=== PATIENT | female | born 1985 | race American Indian/Alaskan Native ===

== ENCOUNTER 2019-10-17 04:39 | Emergency (ER) | payer OTHER ==
[2019-10-17 04:50] VITALS: BP 114/59
--- NOTE | 2019-10-17 05:40 | XRay Report ---
CHEST 2 VIEWS INDICATION / CLINICAL INFORMATION: SOB. COMPARISON: None available. FINDINGS: SUPPORT DEVICES: None. HEART / MEDIASTINUM: No significant abnormality. LUNGS / PLEURA: No significant pulmonary or pleural abnormality. No pneumothorax. ADDITIONAL FINDINGS: No significant additional findings. IMPRESSION: 1. No acute findings. Signer Name: Dax Bosch MD Signed: 10/17/2019 5:36 AM Workstation Name: [id number]
--- NOTE | 2019-10-17 05:57 | Emergency Department Report ---
- General Chief Complaint: Upper Respiratory Infection Stated Complaint: SOB Source: patient Mode of arrival: Ambulatory Limitations: No Limitations - History of Present Illness Initial Comments: Patient is a 34-year-old -[place] female with no past medical history who presents to the ED with complaint of acute onset persistent nasal and sinus congestion and mild dry cough for the last 1 week, worse in the last 2 days. Patient states that about 8 hours ago, she looked online and felt that all her symptoms were listed as those to be expected if one had Covid-19. Patient states that she felt short of breath and decided come to the ED for evaluation of a possible Covid-19 infection. Patient denies chest pain, dizziness, syncope, sore throat, diffuse body aches and pains, abdominal pain, nausea, vomiting, diarrhea, dysuria, urinary frequency and urgency, headache or change in vision or syncope, chills or fever MD Complaint: cough, rhinorrhea, nasal congestion -: Sudden, week(s) (1) Severity: moderate Severity scale (0 -10): 4 Quality: dull Consistency: intermittent Improves With: nothing Worsens With: nothing Associated Symptoms: denies other symptoms, fever, rhinorrhea, nasal congestion, cough. denies: chills, myalgias, diaphoresis, headache, sore throat, chest pain, shortness of breath, nausea, vomiting, dysuria, confusion, right sweats, epistaxis, ear pain Treatments Prior to Arrival: none - Related Data Previous Rx's Medication Instructions Recorded Last Taken Type Acetaminophen [Tylenol] 500 mg PO Q6HR PRN #30 tablet 10/17/19 Unknown Rx Brompheniramine/Pseudoephed/Dm 5 ml PO Q6H PRN #120 ml 10/17/19 Unknown Rx [Bromfed Dm Cough Syrup] Cetirizine HCl [Zyrtec 10mg tab] 10 mg PO DAILY #30 tablet 10/17/19 Unknown Rx Fluticasone [Flonase] 1 spray NS QDAY #1 bottle 10/17/19 Unknown Rx Allergies Allergy/AdvReac Type Severity Reaction Status Date / Time No Known Allergies Allergy Unverified 10/17/19 04:52 ED Review of Systems ROS: Stated complaint: SOB Other details as noted in HPI Constitutional: denies: chills, fever Eyes: denies: eye pain, eye discharge, vision change ENT: congestion. denies: ear pain, throat pain Respiratory: cough. denies: shortness of breath, wheezing Cardiovascular: denies: chest pain, palpitations Endocrine: no symptoms reported Gastrointestinal: denies: abdominal pain, nausea, diarrhea Genitourinary: denies: urgency, dysuria, discharge Musculoskeletal: denies: back pain, joint swelling, arthralgia Skin: denies: rash, lesions Neurological: denies: headache, weakness, paresthesias Psychiatric: denies: anxiety, depression Hematological/Lymphatic: denies: easy bleeding, easy bruising ED Past Medical Hx - Past Medical History Previous Medical History?: No - Surgical History Past Surgical History?: No - Social History Smoking Status: Never Smoker Substance Use Type: None - Medications Home Medications: Home Medications Medication Instructions Recorded Confirmed Last Taken Type Acetaminophen [Tylenol] 500 mg PO Q6HR PRN #30 tablet 10/17/19 Unknown Rx Brompheniramine/Pseudoephed/Dm 5 ml PO Q6H PRN #120 ml 10/17/19 Unknown Rx [Bromfed Dm Cough Syrup] Cetirizine HCl [Zyrtec 10mg tab] 10 mg PO DAILY #30 tablet 10/17/19 Unknown Rx Fluticasone [Flonase] 1 spray NS QDAY #1 bottle 10/17/19 Unknown Rx ED Physical Exam - General Limitations: No Limitations General appearance: alert, in no apparent distress - Head Head exam: Present: atraumatic, normocephalic, normal inspection - Eye Eye exam: Present: normal appearance, PERRL, EOMI Pupils: Present: normal accommodation - ENT ENT exam: Present: normal orophraynx, mucous membranes moist, TM's normal bilaterally, normal external ear exam, other (Grossly congested nasal passages) - Neck Neck exam: Present: normal inspection, full ROM. Absent: tenderness - Respiratory Respiratory exam: Present: normal lung sounds bilaterally. Absent: respiratory distress, wheezes, rales, chest wall tenderness, accessory muscle use, decreased breath sounds - Cardiovascular Cardiovascular Exam: Present: normal rhythm, bradycardia, normal heart sounds. Absent: systolic murmur, diastolic murmur, rubs, gallop - GI/Abdominal GI/Abdominal exam: Present: soft, normal bowel sounds. Absent: tenderness, guarding, rebound, hyperactive bowel sounds, hypoactive bowel sounds - Extremities Exam Extremities exam: Present: normal inspection, full ROM, normal capillary refill - Back Exam Back exam: Present: normal inspection, full ROM. Absent: tenderness, CVA tenderness (R), muscle spasm, paraspinal tenderness, vertebral tenderness - Neurological Exam Neurological exam: Present: alert, oriented X3, CN II-XII intact, normal gait, reflexes normal - Psychiatric Psychiatric exam: Present: normal affect, normal mood - Skin Skin exam: Present: warm, dry, intact, normal color. Absent: rash ED Course Vital Signs 10/17/19 04:47 Temperature 98.1 F Pulse Rate 58 L Respiratory 16 Rate Blood Pressure 114/59 O2 Sat by Pulse 99 Oximetry ED Medical Decision Making - Radiology Data Radiology results: report reviewed, image reviewed Chest x-ray shows no acute cardiopulmonary abnormalities or pneumonitis. - Medical Decision Making This is a 34-year-old -[place] female with no past medical history who presents to the ED with complaint of acute onset persistent nasal and sinus congestion and mild dry cough for the last 1 week, worse in the last 2 days. Patient states that about 8 hours ago, she looked online and felt that all her symptoms were listed as those to be expected if one had Covid-19. Patient states that she felt short of breath and decided come to the ED for evaluation of a possible Covid-19 infection. In the ED, patient is alert and oriented x3 and is not in any distress with normal vital signs. Chest x-ray shows no acute cardiopulmonary abnormalities. Physical exam is unremarkable except for mild nasal congestion. Patient was discharged home on medications and advised to follow-up with her primary care physician in 7 to 10 days for reevaluation. Patient is unlikely having any symptoms of coronavirus strain 2019 (Covid-19) but acute upper respiratory infection likely due to allergic rhinitis or bronchitis. Patient was discharged home and advised to follow-up with her primary care physician and advised to return to the ED immediately if symptoms get worse. - Differential Diagnosis Bronchitis; URI; Rhinitis; pneumonia; Covid-19 Critical care attestation.: If time is entered above; I have spent that time in minutes in the direct care of this critically ill patient, excluding procedure time. ED Disposition Clinical Impression: Acute upper respiratory infection, Allergic rhinitis due to other allergen Acute bronchitis Qualifiers: Bronchitis organism: unspecified organism Qualified Code(s): J20.9 - Acute bronchitis, unspecified Disposition: DC-01 TO HOME OR SELFCARE Is pt being admited?: No Does the pt Need Aspirin: No Condition: Stable Instructions: Acute Bronchitis (ED), Upper Respiratory Infection (ED), Allergic Rhinitis (ED) Additional Instructions: Take medication with food, drink plenty of fluids and follow-up with your primary care physician in 7 to 10 days for reevaluation. Return to the ED im mediately if symptoms get worse. Prescriptions: Acetaminophen [Tylenol] 500 mg PO Q6HR PRN #30 tablet PRN Reason: Pain , Severe (7-10) Brompheniramine/Pseudoephed/Dm [Bromfed Dm Cough Syrup] 5 ml PO Q6H PRN #120 ml PRN Reason: Cough Fluticasone [Flonase] 1 spray NS QDAY #1 bottle Cetirizine HCl [Zyrtec 10mg tab] 10 mg PO DAILY #30 tablet Referrals: NATE MCCONNELL MD [Staff Physician] - 7-10 days Time of Disposition: 05:59 Print Language: SAUDI ARABIAN
== END 2019-10-17 06:12 | disposition home or self-care (01) ==
LOC: ED 04:39
DX: J20.9 Acute bronchitis, unspecified (principal); J30.9 Allergic rhinitis, unspecified
CPT/HCPCS: 71046; 99283